=== PATIENT | female | born 1970 | race Hispanic/Latino ===

== ENCOUNTER 2018-01-14 18:45 | Emergency (ER) | payer BC ==
--- NOTE | 2018-01-14 19:54 | RAD ---
FRONTAL VIEW CHEST SERIES: LEFT RIB SERIES THREE VIEWS: INDICATIONS: Injury with left chest pain. FINDINGS: There is no lobar consolidation. No free air beneath the hemidiaphragms. The cardiomediastinal silh ouette is within normal limits in size for technique. Evaluation of left rib series reveals no displaced left rib fracture. There is no pneumothorax evide nt within the left chest. IMPRESSION: No definite acute process visualized. POS: [facility]
== END 2018-01-14 19:57 | disposition home or self-care (01) ==
LOC: SCSER 18:45
DX: S20.212A Contusion of left front wall of thorax, initial encounter (principal); F41.9 Anxiety disorder, unspecified; F32.9 Major depressive disorder, single episode, unspecified; F17.210 Nicotine dependence, cigarettes, uncomplicated; Z79.899 Other long term (current) drug therapy; W01.0XXA Fall on same level from slipping, tripping and stumbling without subsequent striking against object, initial encounter

== ENCOUNTER 2018-10-27 18:59 | Emergency (ER) | payer BC, SELFPAY ==
[2018-10-27 19:21] LABS: Bilirubin Negative (Negative); Blood, Urine Trace (Negative); Clarity Hazy (Clear); Glucose, Urine (Dipstick) Negative (Negative); Leukocyte Small (Negative); Nitrite Negative (Negative); Protein, Urine (Dipstick) Trace mg/dL (Neg-Trace); Urobilinogen 0.2 mg/dL (0.2-1.0); pH, Urine 6.5 (5.0-9.0)
[2018-10-27 19:28] LABS: RBC/HPF 0-3 HPF (0-3)
[2018-10-27 19:29] LABS: Bacteria/HPF 2+ HPF (None Seen)
[2018-10-27 19:41] LABS: Pregnancy Test - Urine (BHCG) Negative (Negative); Pregu Control Background? CLEAR/WHITE (CLR/WHITE); Pregu Control Bar Appear? YES (CONTROL BAR)
[2018-10-29 23:41] LABS: Chlamydia by PCR Not Detected (NotDetected); GC by PCR Not Detected (NotDetected)
== END 2018-10-27 19:54 | disposition home or self-care (01) ==
LOC: SCSER 18:59
DX: N30.01 Acute cystitis with hematuria (principal); F41.9 Anxiety disorder, unspecified; F32.9 Major depressive disorder, single episode, unspecified; F17.210 Nicotine dependence, cigarettes, uncomplicated; Z79.1 Long term (current) use of non-steroidal anti-inflammatories (NSAID); Z79.899 Other long term (current) drug therapy
CPT/HCPCS: 81003; 81015; 81025; 87077; 87086; 87480; 87491; 87510; 87591; 87660; 99283